=== PATIENT | female | born 1930 | race Hispanic/Latino ===

== ENCOUNTER 2019-11-14 19:29 | Inpatient (IN) | payer MEDICARE, OTHER ==
[2019-11-14] MEDS ORDERED: ONDANSETRON 4 MG ODT TAB ONE (19:39)
[2019-11-14] MEDS ORDERED: ONDANSETRON 4 MG/2 ML INJ IV ONE ×3 (19:45→22:42)
[2019-11-14] MEDS ORDERED: MORPHINE 4 MG/1 ML INJ IV ONE (19:58)
[2019-11-14 20:16] LABS: Basophils % (Auto) 0.3 % (0.0-1.8); Eosinophils % (Auto) 0.1 % (0.0-4.3); Hematocrit 28.5 % (30.3-42.9); Lymphocytes # (Auto) 0.9 K/mm3 (1.2-5.4); Lymphocytes % (Auto) 6.4 % (13.4-35.0); Mean Corpuscular HGB Conc 35 % (30-34); Mean Corpuscular Volume 102 fl (79-97); Monocytes # (Auto) 0.7 K/mm3 (0.0-0.8); Monocytes % (Auto) 4.7 % (0.0-7.3); Platelet Count 259 K/mm3 (140-440); Red Cell Distribution Width 13.6 % (13.2-15.2)
[2019-11-14 20:37] LABS: Alanine Aminotransferase 10 units/L (7-56); Albumin 4.3 g/dL (3.9-5); Blood Urea Nitrogen 21 mg/dL (7-17); Calcium 9.1 mg/dL (8.4-10.2); Hemolysis Index 12
[2019-11-14] MEDS ORDERED: HYDROmorphone 1 MG/1 ML INJ IV ONE ×2 (20:45→22:42)
[2019-11-14] MEDS ORDERED: HYDROmorphone 1 MG/1 ML INJ ONE (20:45)
[2019-11-14 20:48] LABS: BUN/Creatinine Ratio 35
--- NOTE | 2019-11-14 20:50 | Emergency Department Report ---
ED Abdominal Pain HPI - General Chief Complaint: Abdominal Pain Stated Complaint: GENERAL WEAKNESS PUI?: No Time Seen by Provider: 11/14/19 20:20 Source: patient, EMS Mode of arrival: Stretcher Limitations: No Limitations - History of Present Illness Initial Comments: cc: Abdominal pain HPI: This is an 89-year-old female with history of Sjogren's disease, hypertension, anemia, GI bleed, gastritis, esophagitis who presents with severe 10 out of 10 abdominal pain central crampy sudden onset at 4:30 PM this afternoon. No associate with eating. No fever. Positive nausea and vomiting. No sick contacts. Patient lives with her . Patient takes Plavix for unknown reason. On previous occasion patient was prescribed Protonix. Last hospitalization here occurred in 2012 for GI bleed severe anemia associated with esophagitis and gastritis. MD Complaint: abdominal pain -: Sudden, This afternoon Location: diffuse, epigastric Radiation: none Migration to: no migration Severity: severe Severity scale (0 -10): 10 Quality: cramping Consistency: constant Improves With: nothing Worsens With: nothing Associated Symptoms: nausea, vomiting. denies: diarrhea, dysuria - Related Data Home Medications Medication Instructions Recorded Confirmed Last Taken Acetaminophen [Tylenol Arthritis] 325 mg PO BID PRN 03/06/13 11/14/19 11/30/15 Calcium Carbonate/Vitamin D3 600 mg PO BID 03/06/13 11/14/19 12/01/15 [Calcium 600-Vit D3 400 Tablet] Lovastatin Tab [Mevacor] 10 mg PO QHS 03/06/13 11/14/19 12/03/15 Multivitamin [Multi-Vitamin Daily] 400 unit PO BID 03/06/13 11/14/19 12/02/15 atenoloL [Atenolol] 25 mg PO DAILY 09/28/13 11/14/19 12/04/15 Ursodiol (Nf) [Actigall (Nf)] 250 mg PO BID 04/25/14 11/14/19 12/02/15 B2/Vits A,C,E/Lut/Zeaxanth/Min 1 tab PO DAILY 11/14/19 11/14/19 Unknown [Icaps Tablet] Clopidogrel [Plavix] 75 mg PO DAILY 11/14/19 11/14/19 Unknown Colesevelam [Welchol] 625 mg PO DAILY 11/14/19 11/14/19 Unknown Mirabegron [Myrbetriq] 50 mg PO QDAY 11/14/19 11/14/19 Unknown hydroCHLOROthiazide 12.5 mg PO DAILY 11/14/19 11/14/19 Unknown [Hydrochlorothiazide] Allergies Allergy/AdvReac Type Severity Reaction Status Date / Time cephalexin monohydrate AdvReac Severe Diarrhea Verified 12/04/15 10:51 [From Keflex] aspirin AdvReac Intermediate Rash Verified 12/04/15 10:51 ED Review of Systems ROS: Stated complaint: GENERAL WEAKNESS Other details as noted in HPI Comment: All other systems reviewed and negative Constitutional: denies: fever, malaise Respiratory: denies: cough Cardiovascular: denies: chest pain Gastrointestinal: abdominal pain, nausea, vomiting. denies: diarrhea, constipation Skin: denies: rash, lesions Neurological: denies: headache, weakness ED Past Medical Hx - Past Medical History Previous Medical History?: Yes Hx Hypertension: Yes Hx Heart Attack/AMI: No Hx Congestive Heart Failure: No Hx Diabetes: No Hx GERD: Yes Hx Liver Disease: Yes (fatty liver) Hx Renal Disease: No Hx Arthritis: Yes Hx Seizures: No Hx Asthma: No Hx COPD: No Hx HIV: No Additional medical history: back problems, high cholesterol, Sjogren's antibody's - Surgical History Past Surgical History?: Yes Hx Appendectomy: Yes Additional Surgical History: partial hysterectomy, back surgery, bladder tach, patient unclear she's had her appendix out. Only if they took it out with her hysterectomy. Multiple kyphoplastys - Social History Smoking Status: Never Smoker - Medications Home Medications: Home Medications Medication Instructions Recorded Confirmed Last Taken Type Acetaminophen [Tylenol Arthritis] 325 mg PO BID PRN 03/06/13 11/14/19 11/30/15 History Calcium Carbonate/Vitamin D3 600 mg PO BID 03/06/13 11/14/19 12/01/15 History [Calcium 600-Vit D3 400 Tablet] Lovastatin Tab [Mevacor] 10 mg PO QHS 03/06/13 11/14/19 12/03/15 History Multivitamin [Multi-Vitamin Daily] 400 unit PO BID 03/06/13 11/14/19 12/02/15 History atenoloL [Atenolol] 25 mg PO DAILY 09/28/13 11/14/19 12/04/15 History Ursodiol (Nf) [Actigall (Nf)] 250 mg PO BID 04/25/14 11/14/19 12/02/15 History B2/Vits A,C,E/Lut/Zeaxanth/Min 1 tab PO DAILY 11/14/19 11/14/19 Unknown History [Icaps Tablet] Clopidogrel [Plavix] 75 mg PO DAILY 11/14/19 11/14/19 Unknown History Colesevelam [Welchol] 625 mg PO DAILY 11/14/19 11/14/19 Unknown History Mirabegron [Myrbetriq] 50 mg PO QDAY 11/14/19 11/14/19 Unknown History hydroCHLOROthiazide 12.5 mg PO DAILY 11/14/19 11/14/19 Unknown History [Hydrochlorothiazide] ED Physical Exam - General Limitations: No Limitations General appearance: alert, in no apparent distress, other (Appears in severe pain) - Head Head exam: Present: atraumatic, normocephalic - Eye Eye exam: Present: normal appearance - ENT ENT exam: Present: mucous membranes moist - Neck Neck exam: Present: normal inspection, full ROM - Respiratory Respiratory exam: Present: normal lung sounds bilaterally. Absent: respiratory distress, wheezes, rales, rhonchi, stridor - Cardiovascular Cardiovascular Exam: Present: regular rate, normal rhythm, normal heart sounds. Absent: systolic murmur, diastolic murmur, rubs, gallop - GI/Abdominal GI/Abdominal exam: Present: soft, normal bowel sounds. Absent: distended, tenderness, guarding, rebound - Extremities Exam Extremities exam: Present: normal inspection - Neurological Exam Neurological exam: Present: alert, oriented X3 - Psychiatric Psychiatric exam: Present: normal affect, normal mood - Skin Skin exam: Present: warm, dry, intact, normal color. Absent: rash ED Course Vital Signs 11/14/19 11/14/19 11/14/19 19:30 19:43 19:45 Temperature 98.6 F Pulse Rate 102 H 107 H Respiratory 28 H 28 H 27 H Rate Blood Pressure 160/92 Blood Pressure 159/102 [Left] O2 Sat by Pulse 97 96 95 Oximetry 11/14/19 11/14/19 11/14/19 20:16 20:46 21:14 Temperature Pulse Rate 105 H 107 H 112 H Respiratory 34 H 22 20 Rate Blood Pressure 155/99 160/97 Blood Pressure 168/86 [Left] O2 Sat by Pulse 94 98 99 Oximetry 11/14/19 22:06 Temperature Pulse Rate 125 H Respiratory 24 Rate Blood Pressure 160/92 Blood Pressure [Left] O2 Sat by Pulse 96 Oximetry ED Medical Decision Making - Lab Data Result diagrams: 11/14/19 19:59 11/14/19 19:59 - EKG Data -: EKG Interpreted by Me EKG shows normal: sinus rhythm, axis, intervals, QRS complexes Rate: tachycardia - EKG Data 11/14/19 20:50 EKG obtained 2024 EKG interpreted by me Sinus tachycardia rate 110 bpm normal axis normal intervals no ST elevation nonischemic T wave pattern - Radiology Data Radiology results: report reviewed CT abdomen pelvis: Large hiatal hernia, dilatation pancreatic duct, compression deformities with kyphoplasty, mild bladder distention - Medical Decision Making This is an 89-year-old female who presents with severe abdominal pain tachycardia nausea vomiting. Symptoms occurred 2 hours after eating eggroll. Differential diagnosis includes: Food poisoning, viral syndrome such as influenza COVID-19. Medication of bowel obstruction. No indication of acute inflammatory intra-abdominal process. Chest radiograph without evidence of pneumonia. Urinalysis without evidence of UTI. Due to persistent severe tachycardia Sirs, patient will require supportive care. Admitted to the hospital service for supportive care further treatment and evaluation Critical care attestation.: If time is entered above; I have spent that time in minutes in the direct care of this critically ill patient, excluding procedure time. ED Disposition Clinical Impression: SIRS (systemic inflammatory response syndrome), Acute abdominal complaint Disposition: OP ADMIT IP TO THIS HOSP Is pt being admited?: Yes Does the pt Need Aspirin: No Condition: Stable
[2019-11-14 21:07] LABS: Bilirubin,Urine NEG (Negative); Blood,Urine NEG (Negative); Color,Urine Yellow (Yellow); Protein,Urine <15 mg/dL mg/dL (Negative); Urobilinogen,Urine < 2.0 mg/dL (<2.0)
[2019-11-14] MEDS ORDERED: SODIUM CHLORIDE 0.9% 500 ML 500 ML IV ONE ×2 (22:08→22:41)
--- NOTE | 2019-11-14 22:24 | Cat Scan Report ---
CT ABDOMEN AND PELVIS WITH CONTRAST INDICATION / CLINICAL INFORMATION: abdominal pain. TECHNIQUE: Axial CT images were obtained through the abdomen and pelvis after IV contrast. All CT scans at this location are performed using CT dose reduction for ALARA by means of automated exposure control. COMPARISON: CT abdomen pelvis 10/04/2014 FINDINGS: LOWER CHEST: Large hiatal hernia. Multivessel coronary artery atherosclerotic calcination dictation. Aortic valve calcification. Mild bibasilar atelectasis. HEPATOBILIARY: No focal hepatic lesion. No gallstones. Mild intrahepatic biliary ductal dilatation. C ommon bile duct measures up to 6 mm. PANCREAS: There is dilatation of the pancreatic duct in the head/uncinate process up to 7 mm with tap ering to 3 mm at the body and tail. No definite intrinsic or extrinsic obstructing lesion. Morphology appears represent pancreas divisum. Findings are progressed when compared to 10/04/2014. SPLEEN: No significant abnormality. ADRENALS: No significant abnormality. GENITOURINARY: Mild bilateral pelvocaliectasis and ureteral ectasia as well as significant bladder di stention. No nephrolithiasis or definite obstructing lesion. 1.3 cm hypodensity likely represents a l eft simple renal cyst GASTROINTESTINAL/MESENTERY: Some swirling of vessels is noted in the midabdomen without evidence of o bstruction or vascular compromise. No bowel inflammation is noted. There is granulomatous calcificati on and mesenteric lymph nodes. Appendix is not definitively visualized and no pericecal inflammation is seen. No free air or fluid. RETROPERITONEUM: No significant adenopathy. REPRODUCTIVE ORGANS: No significant abnormality. VASCULAR: Severe atherosclerotic calcification without acute abnormality. SKELETAL SYSTEM: Postoperative change of gamma nail in the right hip and multiple level of vertebral/ kyphoplasty. Compression deformities of L3 and L4 with moderate height loss are present with interval worsening at L4 when compared to 2014. Diffuse degenerative change. ADDITIONAL FINDINGS: None. IMPRESSION: 1. Mild bilateral pelvocaliectasis and ureteral ectasia possibly secondary to significant bladder dis tention. Consider and out catheterization. No nephroureterolithiasis. 2. Large hiatal hernia. 3. Dilatation of the pancreatic duct in the head/uncinate process without evidence of obstructing les ion. Findings are new when compared to 2014 and further evaluation with ERCP/MRCP should be considere d. 4. Lumbar spine vertebral body compression deformities with postoperative change of vertebroplasty/ky phoplasty. Interval worsening at L4 with moderate height loss is age indeterminate. Recommend clinica l correlation. Signer Name: Akin Tate MD Signed: 11/14/2019 10:20 PM Workstation Name: [id number]
[2019-11-14] MEDS ORDERED: SODIUM CHLORIDE 0.9% 1000 ML 1,000 ML ONE (23:19)
[2019-11-14] MEDS ORDERED: HEPARIN 5,000 UNIT/1 ML VIAL SUB-Q SCH (23:45)
[2019-11-14] MEDS ORDERED: SODIUM CHLORIDE 0.9% 1000 ML 1,000 ML IV SCH (23:45)
[2019-11-15] MEDS ORDERED: ACETAMINOPHEN 325 MG TAB PO PRN (00:03)
--- NOTE | 2019-11-15 00:20 | XRay Report ---
CHEST 1 VIEW INDICATION: tachycardia COMPARISON: 03/16/2013 FINDINGS: SUPPORT DEVICES: None. HEART / MEDIASTINUM: No significant abnormality. LUNGS / PLEURA: Bronchovascular markings are prominent. No significant pulmonary or pleural abnormali ty. No pneumothorax. ADDITIONAL FINDINGS: IMPRESSION: 1. Prominent bronchovascular markings, questionable pulmonary edema Signer Name: Jake Carcamo MD Signed: 11/15/2019 12:16 AM Workstation Name: [id number]
[2019-11-15] MEDS: ONDANSETRON 4 MG/2 ML INJ IV PRN ×3 (03:12→17:15)
--- NOTE | 2019-11-15 05:42 | History and Physical Report ---
History of Present Illness Date of examination: 11/14/19 Date of admission: 11/14/19 22:45 Chief complaint: Abdominal Pain History of present illness: 89 year old female presenting with diffuse abdominal pain associated with nausea and vomiting and constipation but no diarrhea. There is no history of fever, shortness of breath, chest pain or bodyache. Past History Past Medical History: arthritis, GERD, hypertension, hyperlipidemia Past Surgical History: appendectomy, hysterectomy, Other (BACK SURGERY, BLADDER TACH SURGERY, KYPHOPLASTY) Family history: no significant family history Medications and Allergies Allergies Allergy/AdvReac Type Severity Reaction Status Date / Time cephalexin monohydrate AdvReac Severe Diarrhea Verified 12/04/15 10:51 [From Keflex] aspirin AdvReac Intermediate Rash Verified 12/04/15 10:51 Home Medications Medication Instructions Recorded Confirmed Last Taken Type Acetaminophen [Tylenol Arthritis] 325 mg PO BID PRN 03/06/13 11/14/19 11/30/15 H istory Calcium Carbonate/Vitamin D3 600 mg PO BID 03/06/13 11/14/19 12/01/15 History [Calcium 600-Vit D3 400 Tablet] Lovastatin Tab [Mevacor] 10 mg PO QHS 03/06/13 11/14/19 12/03/15 History Multivitamin [Multi-Vitamin Daily] 400 unit PO BID 03/06/13 11/14/19 12/02/15 History atenoloL [Atenolol] 25 mg PO DAILY 09/28/13 11/14/19 12/04/15 History Ursodiol (Nf) [Actigall (Nf)] 250 mg PO BID 04/25/14 11/14/19 12/02/15 History B2/Vits A,C,E/Lut/Zeaxanth/Min 1 tab PO DAILY 11/14/19 11/14/19 Unknown History [Icaps Tablet] Clopidogrel [Plavix] 75 mg PO DAILY 11/14/19 11/14/19 Unknown History Colesevelam [Welchol] 625 mg PO DAILY 11/14/19 11/14/19 Unknown History Mirabegron [Myrbetriq] 50 mg PO QDAY 11/14/19 11/14/19 Unknown History hydroCHLOROthiazide 12.5 mg PO DAILY 11/14/19 11/14/19 Unknown History [Hydrochlorothiazide] Active Meds: Active Medications Acetaminophen (Tylenol) 650 mg PO Q4H PRN PRN Reason: Fever >101 Atenolol (Tenormin) 25 mg PO DAILY [facility] Bisacodyl (Dulcolax) 10 mg AR QDAY PRN PRN Reason: Constipation Calcium/Vitamin D ([place] D 500 Mg-200 Unit) 1 each PO BID [facility] Clopidogrel Bisulfate (Plavix) 75 mg PO DAILY [facility] Colesevelam HCl (Welchol) 625 mg PO DAILY [facility] Hydrochlorothiazide (Hctz) 12.5 mg PO DAILY [facility] Sodium Chloride (Nacl 0.9% 1000 Ml) 1,000 mls @ 75 mls/hr IV DIRECT CLAUDIA Last Admin: 11/15/19 03:13 Dose: 75 mls/hr Documented by: Miscellaneous Medication (B2/Vits A,C,E/Lut/Zeaxanth/Min [Icaps Tablet]) 1 tab PO DAILY [facility] Miscellaneous Medication (Mirabegron [Myrbetriq]) 50 mg PO QDAY [facility] Morphine Sulfate (Morphine) 2 mg IV Q4H PRN PRN Reason: Pain, Moderate (4-6) Multivitamins (Theragran Tab) 1 each PO BID [facility] Ondansetron HCl (Zofran) 4 mg IV Q8H PRN PRN Reason: Nausea And Vomiting Last Admin: 11/15/19 03:12 Dose: 4 mg Documented by: Pravastatin Sodium (Pravachol) 10 mg PO QHS [facility] Ursodiol (Ursodiol) 250 mg PO BID [facility] Review of Systems Constitutional: weakness, no weight loss, no weight gain, no fever, no chills, no sweats, no night sweats, no fatigue, no malaise, no lethargy Eyes: bilateral: other (NO BILATERAL EYE SYMPTOM) Ears, nose, mouth and throat: no ear pain, no ear discharge, no tinnitis, no decreased hearing, no nose pain, no nasal congestion, no nasal discharge, no dental pain, no mouth pain Breasts: deferred Cardiovascular: no chest pain, no orthopnea, no palpitations, no rapid/irregular heart beat, no syncope Respiratory: no cough, no hemoptysis, no shortness of breath, no dyspnea on exertion, no congestion Gastrointestinal: abdominal pain, nausea, vomiting, constipation, no diarrhea, no change in bowel habits, no hematemesis, no coffee ground emesis, no melena, no hematochezia, no loss of appetite, no early satiety, no heartburn, no indige stion, no belching, no excessive gas, no jaundice, no dyspepsia/bloating, no early satiety Genitourinary Female: no Menstruation: postmenopausal Rectal: no pain, no incontinence, no itching, no hemorrhoids, no flatulence Musculoskeletal: no neck stiffness, no neck pain, no muscle cramps, no myalgias Integumentary: no rash, no pruritis, no redness, no sores, no wounds, no jaundice, no growths, no bullae, no lesions, no darkening of skin, no depigmentation, no acne, no change in hair/nails, no striae, no hirsutism Neurological: weakness, no head injury, no paralysis, no parathesias, no numbness, no tingling, no seizures, no syncope, no tremors, no ataxia, no vertigo, no headaches, no migraines, no convulsions, no change in speech, no change in mentation, no confusion, no memory loss, no motor disturbance Psychiatric: no anxiety, no memory loss, no change in sleep habits, no sleep disturbances, no insomnia, no hypersomnia Endocrine: no cold intolerance, no heat intolerance, no polyphagia, no excessive thirst, no polydipsia, no polyuria, no nocturia, no proptosis, no deepening of the voice, no thyroid mass, no palpatations, no high blood sugars Hematologic/Lymphatic: no easy bruising, no easy bleeding, no lymphadenopathy, no lymphedema Exam - Constitutional Vitals: Temp Pulse Resp BP Pulse Ox 98.0 F 117 H 16 158/87 94 11/15/19 03:29 11/15/19 03:28 11/15/19 03:29 11/15/19 03:28 11/15/19 03:28 General appearance: Present: mild distress - EENT Eyes: Present: PERRL, EOM intact ENT: hearing intact - Neck Neck: Present: supple, normal ROM - Respiratory Respiratory effort: normal - Cardiovascular Rhythm: regular Heart Sounds: Present: S1 & S2. Absent: gallop, systolic murmur, diastolic murmur - Extremities Extremities: no ischemia, No edema Peripheral Pulses: within normal limits - Abdominal General gastrointestinal: Present: soft, non-tender, non-distended. Absent: tender, distended, rigid Female genitourinary: Present: deferred - Rectal Rectal Exam: deferred - Integumentary Integumentary: Present: clear, warm, dry - Musculoskeletal Musculoskeletal: strength equal bilaterally - Psychiatric Psychiatric: appropriate mood/affect - Neurologic Neurologic: CNII-XII intact HEART Score - HEART Score Risk factors: 1-2 risk factors Troponin: < normal limit - Critical Actions Critical Actions: 0-3 pts:0.9-1.7%risk of adverse cardiac event.Candidate for discharge Results - Labs CBC & Chem 7: 11/14/19 19:59 11/14/19 19:59 Labs: Laboratory Last Values WBC 14.6 K/mm3 (4.5-11.0) H 11/14/19 19:59 RBC 2.80 M/mm3 (3.65-5.03) L 11/14/19 19:59 Hgb 10.0 gm/dl (10.1-14.3) L 11/14/19 19:59 Hct 28.5 % (30.3-42.9) L 11/14/19 19:59 MCV 102 fl (79-97) H 11/14/19 19:59 MCH 36 pg (28-32) H 11/14/19 19:59 MCHC 35 % (30-34) H 11/14/19 19:59 RDW 13.6 % (13.2-15.2) 11/14/19 19:59 Plt Count 259 K/mm3 (140-440) 11/14/19 19:59 Lymph % (Auto) 6.4 % (13.4-35.0) L 11/14/19 19:59 [place] % (Auto) 4.7 % (0.0-7.3) 11/14/19 19:59 Eos % (Auto) 0.1 % (0.0-4.3) 11/14/19 19:59 Baso % (Auto) 0.3 % (0.0-1.8) 11/14/19 19:59 Lymph # 0.9 K/mm3 (1.2-5.4) L 11/14/19 19:59 [place] # 0.7 K/mm3 (0.0-0.8) 11/14/19 19:59 Eos # 0.0 K/mm3 (0.0-0.4) 11/14/19 19:59 Baso # 0.0 K/mm3 (0.0-0.1) 11/14/19 19:59 Seg Neutrophils % 88.5 % (40.0-70.0) H 11/14/19 19:59 Seg Neutrophils # 12.9 K/mm3 (1.8-7.7) H 11/14/19 19:59 Sodium 135 mmol/L (137-145) L 11/14/19 19:59 Potassium 4.0 mmol/L (3.6-5.0) 11/14/19 19:59 Chloride 98.5 mmol/L (98-107) 11/14/19 19:59 Carbon Dioxide 20 mmol/L (22-30) L 11/14/19 19:59 Anion Gap 21 mmol/L 11/14/19 19:59 BUN 21 mg/dL (7-17) H 11/14/19 19:59 Creatinine 0.6 mg/dL (0.6-1.2) 11/14/19 19:59 Estimated GFR > 60 ml/min 11/14/19 19:59 BUN/Creatinine Ratio 35 % 11/14/19 19:59 Glucose 190 mg/dL (65-100) H 11/14/19 19:59 Lactic Acid 1.70 mmol/L (0.7-2.0) 11/15/19 02:26 Calcium 9.1 mg/dL (8.4-10.2) 11/14/19 19:59 Total Bilirubin 0.20 mg/dL (0.1-1.2) 11/14/19 19:59 AST 20 units/L (5-40) 11/14/19 19:59 ALT 10 units/L (7-56) 11/14/19 19:59 Alkaline Phosphatase 46 units/L (35-129) 11/14/19 19:59 Total Protein 7.8 g/dL (6.3-8.2) 11/14/19 19:59 Albumin 4.3 g/dL (3.9-5) 11/14/19 19:59 Albumin/Globulin Ratio 1.2 % 11/14/19 19:59 Lipase 56 units/L (13-60) 11/14/19 19:59 Urine Color Yellow (Yellow) 11/14/19 20:59 Urine Turbidity Clear (Clear) 11/14/19 20:59 Urine pH 7.0 (5.0-7.0) 11/14/19 20:59 Ur Specific [place] 1.010 (1.003-1.030) 11/14/19 20:59 Urine Protein <15 mg/dl mg/dL (Negative) 11/14/19 20:59 Urine Glucose (UA) Neg mg/dL (Negative) 11/14/19 20:59 Urine Ketones Tr mg/dL (Negative) 11/14/19 20:59 Urine Blood Neg (Negative) 11/14/19 20:59 Urine Nitrite Neg (Negative) 11/14/19 20:59 Urine Bilirubin Neg (Negative) 11/14/19 20:59 Urine Urobilinogen < 2.0 mg/dL (<2.0) 11/14/19 20:59 Ur Leukocyte Esterase Mod (Negative) 11/14/19 20:59 Urine WBC (Auto) 6.0 /HPF (0.0-6.0) 11/14/19 20:59 Urine RBC (Auto) 2.0 /HPF (0.0-6.0) 11/14/19 20:59 Microbiology: Microbiology 11/14/19 23:08 Peripheral/Venous Blood Culture - Preliminary Culture in Progress 11/14/19 22:54 Peripheral/Venous Blood Culture - Preliminary Culture in Progress White/IV: IV Catheter Type [Left INT / Saline Lock Antecubital] Assessment and Plan - Patient Problems (1) Tachycardia Current Visit: Yes Status: Acute Plan to address problem: 1. I.V NORMAL SALINE FLUID 2. HOME MEDICATION LIKE PROPRANOLOL (2) Acute abdominal complaint Current Visit: Yes Status: Acute Plan to address problem: 1. I.V MORPHIN FOR PAIN 2. I.V ZOFRAN FOR NAUSEA 3. DULCOLAX SUPPOSITORY FOR CONSTIPATION 4. I.V NORMAL SALINE FLUID
[2019-11-15] MEDS ORDERED: [UNRECOGNIZED DRUG - OTHER] PO SCH (10:00)
[2019-11-15] MEDS ORDERED: NON-FORMULARY EACH (Mirabegron [Myrbetriq] 50 MG) PO SCH (10:00)
[2019-11-15] MEDS: hydroCHLOROthiazide 12.5 MG CAP PO SCH (11:21)
[2019-11-15] MEDS: atenoloL 25 MG TAB PO SCH (11:21)
[2019-11-15] MEDS: MULTIVITAMINS ,THERAPEUTIC TAB PO SCH ×2 (11:21→21:54)
[2019-11-15] MEDS: CLOPIDOGREL 75 MG TAB PO SCH (11:21)
[2019-11-15] MEDS: CALCIUM CARBONATE/VITAMIN D3 500 MG-200 UNIT TAB PO SCH ×2 (11:21→21:54)
[2019-11-15] MEDS: COLESEVELAM 625 MG TAB PO SCH (11:42)
[2019-11-15] MEDS: URSODIOL 250 MG TAB PO SCH ×2 (11:43→21:55)
[2019-11-15] MEDS: PANTOPRAZOLE 40 MG INJ IV SCH (13:40)
[2019-11-15] MEDS: D5W/0.9% NACL 1,000 ML IV SCH (13:44)
--- NOTE | 2019-11-15 14:30 | Progress Note ---
Assessment and Plan Acute epigastric abdominal pain -CT abdomen pelvis suggesting pancreatic duct dilatation without any obvious obstruction -GI consulted, plan for MRCP today -Patient on clear liquid diet, continue IV fluid Intractable nausea and vomiting -Continue IV fluid, IV antiemetics, continue PPI History of GI bleed, monitor H&H Hypertension, continue to monitor vitals -Resume home meds Hyponatremia, likely due to dehydration, continue IV fluid Lactic acidosis, likely from dehydration -Improved with IV fluid SIRS, patient presented with leukocytosis, tachycardia, lactic acidosis -Continue empiric antibiotics for now, follow cultures h/o L5 compression fracture, continue supportive care DVT prophylaxis, heparin Brief History: This is a 89-year-old white female with a history of hypertension, history of GI bleed in the past, rheumatoid arthritis presented to the hospital with intractable nausea vomiting and abdominal pain. CT abdomen pelvis in the ER showed pancreatic dilation without any obvious obstruction. GI has consulted, plan for MRCP -ordered. Ct abdoemn/pelvis: 1. Mild bilateral pelvocaliectasis and ureteral ectasia possibly secondary to significant bladder distention. Consider and out catheterization. No nephroureterolithiasis. 2. Large hiatal hernia. 3. Dilatation of the pancreatic duct in the head/uncinate process without evidence of obstructing lesion. Findings are new when compared to 2015 and further evaluation with ERCP/MRCP should be considered. 4. Lumbar spine vertebral body compression deformities with postoperative change of vertebroplasty/kyphoplasty. Interval worsening at L4 with moderate height loss is age indeterminate. Recommend clinical correlation. Subjective Date of service: 11/15/19 Interval history: Patient seen and examined. Medical records and medication list reviewed. No acute event overnight noted by the RN. Patient denies any chest pain or difficulty breathing. Continue to complains of epigastric pain along with nausea and vomiting Discussed plan of care at bedside with patient. Objective - Exam Narrative Exam: GENERAL: This is a frail elderly white female lying on bed appeared to be in no discomfort. HEENT: Normocephalic. Atraumatic. No conjunctival congestion or icterus. Patient has moist mucous membranes. NECK: Supple. Trachea midline. CHEST/LUNGS: Clear to auscultated bilaterally, breathing nonlabored. No wheezes crackles or rhonchi. HEART/CARDIOVASCULAR: Regular in rate and rhythm. S1 and S2 positive. ABDOMEN: Abdomen is soft, + epigastric tender. Patient has normal bowel sounds. SKIN: There is no rash. Warm and dry. NEURO: No focal motor deficit. Follows command. MUSCULOSKELETAL: No joint effusion or tenderness. EXTRIMITY: No edema, no cyanosis or clubbing. PSYCH: Cooperative. - Constitutional Vitals: Vital Signs - 12hr 11/15/19 11/15/19 11/15/19 03:28 03:29 07:27 Temperature 98.0 F 98.0 F 97.5 F L Pulse Rate 117 H 56 L Respiratory 16 16 18 Rate Blood Pressure 158/87 139/74 O2 Sat by Pulse 94 94 Oximetry 11/15/19 11/15/19 08:07 11:21 Temperature Pulse Rate 106 H 108 H Respiratory Rate Blood Pressure 156/76 O2 Sat by Pulse Oximetry - Labs CBC & Chem 7: 11/14/19 19:59 11/14/19 19:59 Labs: Abnormal lab results 11/14/19 11/14/19 11/14/19 Range/Units 19:59 19:59 23:08 WBC 14.6 H (4.5-11.0) K/mm3 RBC 2.80 L (3.65-5.03) M/mm3 Hgb 10.0 L (10.1-14.3) gm/dl Hct 28.5 L (30.3-42.9) % MCV 102 H (79-97) fl MCH 36 H (28-32) pg MCHC 35 H (30-34) % Lymph % (Auto) 6.4 L (13.4-35.0) % Lymph # 0.9 L (1.2-5.4) K/mm3 Seg Neutrophils % 88.5 H (40.0-70.0) % Seg Neutrophils # 12.9 H (1.8-7.7) K/mm3 Sodium 135 L (137-145) mmol/L Carbon Dioxide 20 L (22-30) mmol/L BUN 21 H (7-17) mg/dL Glucose 190 H (65-100) mg/dL Lactic Acid 2.90 H* (0.7-2.0) mmol/L HEART Score - HEART Score Risk factors: 1-2 risk factors Troponin: < normal limit - Critical Actions Critical Actions: 0-3 pts:0.9-1.7%risk of adverse cardiac event.Candidate for discharge
[2019-11-15] MEDS: MULTIVITAMINS,THER W-MINERALS TAB PO SCH (16:06)
--- NOTE | 2019-11-15 16:08 | Magnetic Resonance Report ---
MRCP INDICATION: Nausea, vomiting TECHNIQUE: Axial and coronal imaging is performed. Radial MRCP images were obtained. No contrast is a dministered. COMPARISON: CT scan dated 10/14/2019 FINDINGS: The distal common bile duct level the pancreatic head is dilated and measures approximately 7 mm. Pancreatic duct measures approximately 3 mm. No filling defects are seen within the pancreatic duct common bile duct. No mass lesions are seen. IMPRESSION: There is mild dilatation of the common bile duct at the level of the pancreatic head no filling defec ts are seen within the common duct or within the pancreatic duct. No mass lesions are seen. Signer Name: Vladislav Gregorio MD Signed: 11/15/2019 4:03 PM Workstation Name: [id number]
[2019-11-15] MEDS: METOCLOPRAMIDE 10 MG TAB PO PRN (17:08)
--- NOTE | 2019-11-15 19:59 | Consultation ---
REFERRING PHYSICIAN: Riddhi Mercer MD INDICATION: Abdominal pain. HISTORY OF PRESENT ILLNESS: The patient is an 89-year-old white female, who presents for abdominal pain. The patient reports usual state of health until the day prior to admission when she started having epigastric pain. The patient reports symptoms were worse with eating and associated with some nausea, vomiting. She denies any weight loss. She denies any lower GI symptoms including diarrhea, constipation or rectal bleeding. The patient subsequently came to Emergency Room, was evaluated, admitted and GI consulted. PAST MEDICAL HISTORY: 1. GERD. 2. Hypertension. 3. High cholesterol. PAST SURGICAL HISTORY: Appendectomy, hysterectomy, back surgery. ALLERGIES: KEFLEX AND ASPIRIN. MEDICATIONS: Reviewed and updated in chart. SOCIAL HISTORY: Denies alcohol, tobacco or drug abuse. FAMILY HISTORY: Negative for colon cancer, IBD, or liver disease. REVIEW OF SYSTEMS: GENERAL: Reports some weakness. HEENT: No visual complaints or tinnitus. PULMONARY: No shortness of breath. No cough. No chest pain. GASTROINTESTINAL: Reports abdominal pain. All points of 13-point review of systems otherwise negative. PHYSICAL EXAMINATION: VITAL SIGNS: Temperature of 97.5, pulse 60, respirations 18, blood pressure 130/74. GENERAL: Fairly nourished female, in no acute distress. HEENT: Pupils equal, round and reactive. PULMONARY: Clear to auscultation bilaterally. CARDIOVASCULAR: Regular rhythm. Normal S1, S2. ABDOMEN: Positive bowel sounds, soft. SKIN: No obvious rashes. LABORATORY DATA: Pertinent for white count of 14.6, hemoglobin and hematocrit of 10 and 28.5, platelet count of 259. Chem-7 within normal limits. LFTs within normal limits. CT scan of abdomen and pelvis with contrast performed on 11/14/2019 showed a dilated pancreatic duct, but otherwise no other significant GI pathology. ASSESSMENT: An 89-year-old female with epigastric pain, now presents with abdominal pain, unclear etiology. The patient was noted to have pancreatic duct dilation on CT scan, but denies any weight loss or other associated symptoms, concern for GI-related pathology. PLAN: 1. We will review CT scan. 2. MRI, MRCP. 3. If negative MRI, MRCP, would then consider EGD. 4. Followup and further recommendation based on progress and results of the above. JOB# [id number] BENNY/LYNN MAURICE
[2019-11-15 20:21] LABS: Blood Urea Nitrogen 14 mg/dL (7-17); Calcium 9.6 mg/dL (8.4-10.2); Hemolysis Index 65
[2019-11-15 20:26] LABS: BUN/Creatinine Ratio 20
[2019-11-15] MEDS: PRAVASTATIN 20 MG TAB PO SCH (21:54)
[2019-11-16] MEDS: D5W/0.9% NACL 1,000 ML IV SCH ×2 (05:52→21:32)
[2019-11-16] MEDS: MORPHINE 2 MG/1 ML INJ IV PRN ×2 (05:52→21:30)
[2019-11-16] MEDS ORDERED: SODIUM CHLORIDE 0.9% 1000 ML 1,000 ML IV SCH (10:00)
--- NOTE | 2019-11-16 10:18 | Progress Note ---
Assessment and Plan Assessment and plan: --Patient is scheduled for EGD today; Continue n.p.o. status IV fluids IV Protonix Supportive care Acute epigastric abdominal pain -CT abdomen pelvis suggesting pancreatic duct dilatation without any obvious obstruction s/p MRCP 11/15/2019 MRCP; mild dilation of the common bile duct at the level of pancreatic head no filling defects are seen within the common duct or within the pancreatic duct no mass or lesions noted -Patient on clear liquid diet, continue IV fluid Intractable nausea and vomiting -Continue IV fluid, IV antiemetics, continue PPI History of GI bleed, monitor H&H Hypertension, continue to monitor vitals -Resume home meds Hyponatremia, likely due to dehydration, continue IV fluid Lactic acidosis, likely from dehydration -Improved with IV fluid SIRS, patient presented with leukocytosis, tachycardia, lactic acidosis -Continue empiric antibiotics for now, follow cultures h/o L5 compression fracture, continue supportive care DVT prophylaxis, heparin Follow EGD, follow GI recommendations Discharge when stable and cleared by GI Plan of care reviewed with the patient and her nurse History Interval history: I have seen and examined the patient at the bedside this morning Patient's chart and current medications reviewed Patient feels slightly better, asked for some water Patient is scheduled for EGD this afternoon Vital signs noted, patient is not in acute distress Hospitalist Physical - Constitutional Vitals: Temp Pulse Resp BP Pulse Ox 97.4 F L 60 17 138/73 98 11/16/19 07:43 11/16/19 07:43 11/16/19 07:43 11/16/19 07:43 11/16/19 07:43 General appearance: Present: no acute distress, well-nourished - EENT Eyes: Present: PERRL, EOM intact - Neck Neck: Present: supple, normal ROM - Respiratory Respiratory effort: normal Respiratory: bilateral: diminished, negative: rales, rhonchi, wheezing - Cardiovascular Rhythm: regular Heart Sounds: Present: S1 & S2 - Extremities Extremities: no ischemia, No edema - Abdominal General gastrointestinal: soft, non-tender, non-distended, normal bowel sounds - Integumentary Integumentary: Present: clear, warm - Psychiatric Psychiatric: appropriate mood/affect, cooperative - Neurologic Neurologic: moves all extremities HEART Score - HEART Score Risk factors: 1-2 risk factors Troponin: < normal limit - Critical Actions Critical Actions: 0-3 pts:0.9-1.7%risk of adverse cardiac event.Candidate for discharge Results - Labs CBC & Chem 7: 11/14/19 19:59 11/15/19 19:18 Labs: Laboratory Last Values WBC 14.6 K/mm3 (4.5-11.0) H 11/14/19 19:59 RBC 2.80 M/mm3 (3.65-5.03) L 11/14/19 19:59 Hgb 10.0 gm/dl (10.1-14.3) L 11/14/19 19:59 Hct 28.5 % (30.3-42.9) L 11/14/19 19:59 MCV 102 fl (79-97) H 11/14/19 19:59 MCH 36 pg (28-32) H 11/14/19 19:59 MCHC 35 % (30-34) H 11/14/19 19:59 RDW 13.6 % (13.2-15.2) 11/14/19 19:59 Plt Count 259 K/mm3 (140-440) 11/14/19 19:59 Lymph % (Auto) 6.4 % (13.4-35.0) L 11/14/19 19:59 [place] % (Auto) 4.7 % (0.0-7.3) 11/14/19 19:59 Eos % (Auto) 0.1 % (0.0-4.3) 11/14/19 19:59 Baso % (Auto) 0.3 % (0.0-1.8) 11/14/19 19:59 Lymph # 0.9 K/mm3 (1.2-5.4) L 11/14/19 19:59 [place] # 0.7 K/mm3 (0.0-0.8) 11/14/19 19:59 Eos # 0.0 K/mm3 (0.0-0.4) 11/14/19 19:59 Baso # 0.0 K/mm3 (0.0-0.1) 11/14/19 19:59 Seg Neutrophils % 88.5 % (40.0-70.0) H 11/14/19 19:59 Seg Neutrophils # 12.9 K/mm3 (1.8-7.7) H 11/14/19 19:59 Sodium 132 mmol/L (137-145) L 11/15/19 19:18 Potassium 4.4 mmol/L (3.6-5.0) 11/15/19 19:18 Chloride 92.1 mmol/L (98-107) L 11/15/19 19:18 Carbon Dioxide 23 mmol/L (22-30) 11/15/19 19:18 Anion Gap 21 mmol/L 11/15/19 19:18 BUN 14 mg/dL (7-17) 11/15/19 19:18 Creatinine 0.7 mg/dL (0.6-1.2) 11/15/19 19:18 Estimated GFR > 60 ml/min 11/15/19 19:18 BUN/Creatinine Ratio 20 % 11/15/19 19:18 Glucose 119 mg/dL (65-100) H 11/15/19 19:18 Lactic Acid 1.70 mmol/L (0.7-2.0) 11/15/19 02:26 Calcium 9.6 mg/dL (8.4-10.2) 11/15/19 19:18 Total Bilirubin 0.20 mg/dL (0.1-1.2) 11/14/19 19:59 AST 20 units/L (5-40) 11/14/19 19:59 ALT 10 units/L (7-56) 11/14/19 19:59 Alkaline Phosphatase 46 units/L (35-129) 11/14/19 19:59 Total Protein 7.8 g/dL (6.3-8.2) 11/14/19 19:59 Albumin 4.3 g/dL (3.9-5) 11/14/19 19:59 Albumin/Globulin Ratio 1.2 % 11/14/19 19:59 Lipase 56 units/L (13-60) 11/14/19 19:59 Urine Color Yellow (Yellow) 11/14/19 20:59 Urine Turbidity Clear (Clear) 11/14/19 20:59 Urine pH 7.0 (5.0-7.0) 11/14/19 20:59 Ur Specific [place] 1.010 (1.003-1.030) 11/14/19 20:59 Urine Protein <15 mg/dl mg/dL (Negative) 11/14/19 20:59 Urine Glucose (UA) Neg mg/dL (Negative) 11/14/19 20:59 Urine Ketones Tr mg/dL (Negative) 11/14/19 20:59 Urine Blood Neg (Negative) 11/14/19 20:59 Urine Nitrite Neg (Negative) 11/14/19 20:59 Urine Bilirubin Neg (Negative) 11/14/19 20:59 Urine Urobilinogen < 2.0 mg/dL (<2.0) 11/14/19 20:59 Ur Leukocyte Esterase Mod (Negative) 11/14/19 20:59 Urine WBC (Auto) 6.0 /HPF (0.0-6.0) 11/14/19 20:59 Urine RBC (Auto) 2.0 /HPF (0.0-6.0) 11/14/19 20:59 Microbiology: Microbiology 11/14/19 23:08 Peripheral/Venous Blood Culture - Preliminary NO GROWTH AFTER 24 HOURS 11/14/19 22:54 Peripheral/Venous Blood Culture - Preliminary NO GROWTH AFTER 24 HOURS White/IV: Voiding Method External Female Catheter IV Catheter Type [Right Upper Mid-line arm] IV Catheter Type [Left INT / Saline Lock Antecubital] Active Medications - Current Medications Current Medications: Generic Name Dose Route Start Last Admin Trade Name Freq PRN Reason Stop Dose Admin Acetaminophen 650 mg 11/15/19 00:03 Tylenol PO Q4H PRN Fever >101 Atenolol 25 mg 11/15/19 10:00 11/15/19 11:21 Tenormin PO 25 mg DAILY CLAUDIA Administration Bisacodyl 10 mg 11/15/19 00:00 Dulcolax [place] QDAY PRN Constipation Calcium/Vitamin D 1 each 11/15/19 10:00 11/15/19 21:54 Oysco D 500 Mg-200 Unit PO 1 each BID CLAUDIA Administration Clopidogrel Bisulfate 75 mg 11/15/19 10:00 11/15/19 11:21 Plavix PO 75 mg DAILY CLAUDIA Administration Colesevelam HCl 625 mg 11/15/19 10:00 11/15/19 11:42 Welchol PO 625 mg DAILY CLAUDIA Administration Hydrochlorothiazide 12.5 mg 11/15/19 10:00 11/15/19 11:21 Hctz PO 12.5 mg DAILY CLAUDIA Administration Levofloxacin/Dextrose 750 mg in 150 mls @ 100 mls/hr 11/15/19 16:00 11/15/19 16:06 Levaquin 750mg/150ml IV 100 mls/hr Q48HR CLAUDIA Administration Protocol Sodium Chloride 1,000 mls @ 50 mls/hr 11/16/19 10:00 Nacl 0.9% 1000 Ml IV DIRECT CLAUDIA Dextrose/Sodium Chloride 1,000 mls @ 75 mls/hr 11/16/19 10:00 D5ns IV DIRECT CLAUDIA Metoclopramide HCl 5 mg 11/15/19 12:00 Reglan PO Q6HR PRN Nausea And Vomiting Miscellaneous Medication 50 mg 11/15/19 10:00 Mirabegron [Myrbetriq] PO QDAY CLAUDIA Morphine Sulfate 2 mg 11/15/19 00:03 11/16/19 05:52 Morphine IV 2 mg Q4H PRN Administration Pain, Moderate (4-6) Multivitamins 1 each 11/15/19 10:00 11/15/19 21:54 Theragran Tab PO 1 each BID CLAUDIA Administration Multivitamins/Minerals 1 each 11/15/19 15:00 11/15/19 16:06 Theragran-M Tab PO 1 each QDAY CLAUDIA Administration Ondansetron HCl 4 mg 11/15/19 00:01 11/15/19 17:15 Zofran IV 4 mg Q8H PRN Administration Nausea And Vomiting Pantoprazole Sodium 40 mg 11/15/19 12:00 11/15/19 13:40 Protonix IV 40 mg QDAY CLAUDIA Administration Pravastatin Sodium 10 mg 11/15/19 22:00 11/15/19 21:54 Pravachol PO 10 mg QHS CLAUDIA Administration Ursodiol 250 mg 11/15/19 10:00 11/15/19 21:55 Ursodiol PO 250 mg BID CLAUDIA Administration Nutrition/Malnutrition Assess - Dietary Evaluation Nutrition/Malnutrition Findings: Nutrition Notes Start: 11/15/19 12:38 Freq: Status: Active Protocol: Document 11/15/19 12:38 [email or web address] (Rec: 11/15/19 13:23 [email or web address]) Co-Sign 11/15/19 12:38 LM Nutrition Notes Need for Assessment generated from: hr generalist,MST Initial or Follow up Assessment Current Diagnosis Hypertension,Hyperlipidemia Other Pertinent Diagnosis Abdominal pain, SIRS, tachycardia Current Diet Clear liquid diet Labs/Tests 11/13 Glucose 190 Na 135 BUN 21 Pertinent Medications Reviewed Height 5 ft 3 in Weight 43 kg [place] Body Weight (kg) 52.27 BMI 16.7 Weight Status Underweight Subjective/Other Information Pt screened for MST score. Spoke with RN, pt is not tolerating low sodium diet and will be changed to a clear liquid diet. Pt ate 10 spoonfuls for applesauce to take medicine. Pt has had nausea. Pt has clavicle and orbital wasting. Burn Absent Trauma Absent GI Symptoms Nausea Current % PO Negligible Minimum of two criteria Yes Body Fat Depletion Mild depletion (non-severe) Muscle Mass Mild Depletion (non-severe) #2 Nutrition Diagnosis Malnutrition Etiology abdominal pain and advanced age As Evidenced by Signs and Symptoms Clavicle and orbital wasting. #1 Nutrition Diagnosis Inadequate oral intake Etiology abdominal pain As Evidenced by Signs and Symptoms Pt not tolerating and diet change to clear liquids Is patient on ventilator? No Is Patient Ambulatory and/or Out of Bed No REE-([facility]-confined to bed) 1002.888 Kcal/Kg value to use for calculation 32 Approximate Energy Requirements Using 1376 kcal/Kg Calculation Used for Recommendations Kcal/kg Additional Notes Protein Needs (1.2g/kg) 52-65g /kg Fluid Needs: 1ml/kcal Nutrition Intervention Change Diet Order: Advance diet when feasible Add Supplement/Snack (indicate name/kcal Ensure Clear BID /protein ) Provides kCal: 480 Provides Protein (gm) 16 Goal #1 Diet advancement when feasible Goal #2 Wt gain/maintenance Anticipated Discharge Needs: unable to determine at this time. Follow-Up By: 11/17/19 Additional Comments F/U for intake, tolerance and diet advancement
[2019-11-16] MEDS: PANTOPRAZOLE 40 MG INJ IV SCH (11:03)
--- NOTE | 2019-11-16 12:46 | Anesthesia Day of Surgery ---
Anesthesia Day of Surgery - Day of Surgery Patient Examined: Yes Patient H&P Reviewed: Yes Patient is NPO: Yes
--- NOTE | 2019-11-16 12:47 | Anesthesia Consultation ---
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
[2019-11-16] MEDS ORDERED: propofoL 200 MG/20 ML VIAL IV ONE (13:16)
[2019-11-16] MEDS ORDERED: SODIUM CHLORIDE 0.9% 1000 ML 1,000 ML ONE (13:23)
--- NOTE | 2019-11-16 14:38 | Post Operative Note ---
Pre-op diagnosis: epigastric pain Post-op diagnosis: same Findings: EGD: small hiatal hernia - mild gastritis (bx's) - negative other Procedure: EGD Anesthesia: MAC Surgeon: SANIA LOCKE Estimated blood loss: none Pathology: list Specimen disposition: to lab Condition: stable Disposition: floor
--- NOTE | 2019-11-16 14:39 | Post Anesthesia Evaluation ---
- Post Anesthesia Evaluation Patient Participated: Yes Airway Patent: Yes Stable Respiratory Function: Yes Nausea/Vomiting: No Temp > 96.8F: Yes Pain Manageable: Yes Adequeate Hydration: Yes Anesthesia Complications: No Block Receding Appropriately: Not Applicable Patient on Ventilator: No
[2019-11-16] MEDS: MULTIVITAMINS,THER W-MINERALS TAB PO SCH (15:14)
--- NOTE | 2019-11-16 15:14 | Operative Report ---
PROCEDURE: EGD with cold biopsies. INDICATION: 1. Upper abdominal pain. 2. Nausea. MEDICATIONS: Propofol per RECHARGER. COMPLICATIONS: None. DESCRIPTION OF PROCEDURE: The patient brought to the procedure suite. The patient had the procedure discussed with her at length. All risks, complications, and benefits discussed after which the patient signed for the procedure performed. The patient was placed in left lateral decubitus position. Mouth block was placed in the patient's oral cavity. After adequate sedation medication as above, endoscope placed in mouth and brought to level of the second portion of duodenum. Retroflexion view performed. The patient's vital signs remained stable throughout the procedure. FINDINGS: There was irregular Z line, probable massive reflux, 37 cm from the gums. Biopsies were taken and sent to pathology. Medium sized hiatal hernia at GE junction. The esophagus otherwise appeared to be normal. Mild antral gastritis noted. Biopsies were taken and sent for pathology. The remaining stomach otherwise appeared to be normal. The duodenum appeared to be normal. Retroflexion view performed in the stomach showed no other pathology other than noted above. The patient tolerated the procedure well. No complications during the procedure. IMPRESSION: 1. Hiatal hernia. 2. Irregular Z line, biopsies performed. 3. Otherwise, normal esophagus. 4. Gastritis, biopsies performed. 5. Otherwise, normal EGD. RECOMMENDATIONS: 1. Follow up biopsy results. 2. If H. pylori positive, treat. 3. PPI daily. 4. If tolerating p.o., okay to discharge from GI standpoint. JOB# [id number] [facility]/NTS
[2019-11-16] MEDS: atenoloL 25 MG TAB PO SCH (15:15)
[2019-11-16] MEDS: CLOPIDOGREL 75 MG TAB PO SCH (15:15)
[2019-11-16] MEDS: CALCIUM CARBONATE/VITAMIN D3 500 MG-200 UNIT TAB PO SCH ×2 (15:15→21:30)
[2019-11-16] MEDS: URSODIOL 250 MG TAB PO SCH ×2 (15:15→21:30)
[2019-11-16] MEDS: COLESEVELAM 625 MG TAB PO SCH (15:16)
[2019-11-16] MEDS: hydroCHLOROthiazide 12.5 MG CAP PO SCH (15:16)
[2019-11-16] MEDS: ONDANSETRON 4 MG/2 ML INJ IV PRN ×2 (15:52→21:30)
[2019-11-16] MEDS: PRAVASTATIN 20 MG TAB PO SCH (21:30)
--- NOTE | 2019-11-17 10:24 | Event Note ---
patient was added to our list however her renal function has been stable if there are any renal concerns please reach out to us
[2019-11-17] MEDS ORDERED: WATER FOR INJ Sterile (PF) 0 ML ONE (12:14)
[2019-11-17] MEDS ORDERED: SINCALIDE 5 MCG VIAL IV ONE ×2 (12:14→12:19)
[2019-11-17] MEDS: D5W/0.9% NACL 1,000 ML IV SCH (13:56)
[2019-11-17] MEDS: hydroCHLOROthiazide 12.5 MG CAP PO SCH (13:59)
[2019-11-17] MEDS: MULTIVITAMINS,THER W-MINERALS TAB PO SCH (14:00)
[2019-11-17] MEDS: URSODIOL 250 MG TAB PO SCH ×2 (14:00→22:20)
[2019-11-17] MEDS: CALCIUM CARBONATE/VITAMIN D3 500 MG-200 UNIT TAB PO SCH ×2 (14:00→22:20)
[2019-11-17] MEDS: CLOPIDOGREL 75 MG TAB PO SCH (14:00)
[2019-11-17] MEDS: PANTOPRAZOLE 40 MG INJ IV SCH (14:00)
[2019-11-17] MEDS: COLESEVELAM 625 MG TAB PO SCH (14:00)
--- NOTE | 2019-11-17 14:09 | Nuclear Medicine Report ---
NUCLEAR MEDICINE HEPATOBILIARY SCAN INDICATION: nausea. TECHNIQUE: Radiotracer: Tc-99m mebrofenin (by IV): 5.3 mCi. Gallbladder Stimulant: None. COMPARISON: 09/24/2014 CT abdomen pelvis FINDINGS: Hepatic activity: Slightly increased activity in the right hepatic lobe.. Biliary activity: Delayed. Common bile duct activity is not confidently identified throughout this ex am out to 2 hours. Gallbladder activity: Delayed at 45 minutes. Small bowel activity: Not seen on T2 hours of imaging. Gallbladder ejection fraction was not performed because the patient terminated the examination. 2 muc h pain. IMPRESSION: There is delayed uptake of the radiotracer in the gallbladder at 45 minutes. No convincing common bi le duct and small bowel activity is identified. This could represent common bile duct obstruction. Co rrelate with the patient and consider MRCP or CT.. Signer Name: Doni Craft Jr, MD Signed: 11/17/2019 2:05 PM Workstation Name: [id number]
[2019-11-17] MEDS: atenoloL 25 MG TAB PO SCH (14:22)
[2019-11-17] MEDS: ONDANSETRON 4 MG/2 ML INJ IV PRN (14:34)
--- NOTE | 2019-11-17 18:03 | Progress Note ---
Assessment and Plan Assessment and plan: --Patient had EGD yesterday s/p EGD 11/16/2019 - small hiatal hernia - mild gastritis (bx's) - negative other Rec: - f/u bx's - PPI qd - soft diet - pt had mildly dilated pancreatic duct on ct and cbd on MRI w/o obvious mass, ca 19-9 pending (follow as outpt) - may need EUS as outpt for continued bile/pancreatic duct eval Endoscopic ultrasound as outpatient --Acute epigastric abdominal pain -CT abdomen pelvis suggesting pancreatic duct dilatation without any obvious obstruction s/p MRCP 11/15/2019 MRCP; mild dilation of the common bile duct at the level of pancreatic head no filling defects are seen within the common duct or within the pancreatic duct no mass or lesions noted Hepatobiliary scan; 11/17/2019 There is delayed uptake of radiotracer in the gallbladder at 45 minutes no convincing common bile duct and small bowel activity is identified this could represent common bile duct obstruction correlate with the patient and consider MRCP MRCP or consider MRCP . --Patient on clear liquid diet, continue IV fluid Intractable nausea and vomiting -Continue IV fluid, IV antiemetics, continue PPI History of GI bleed, monitor H&H Hypertension, continue to monitor vitals -Resume home meds Hyponatremia, likely due to dehydration, continue IV fluid Lactic acidosis, likely from dehydration -Improved with IV fluid SIRS, patient presented with leukocytosis, tachycardia, lactic acidosis -Continue empiric antibiotics for now, follow cultures h/o L5 compression fracture, continue supportive care DVT prophylaxis, heparin Closely monitor the patient and adjust management as needed Start soft diet advance as tolerated If patient tolerates diet may discharge home first thing in the morning If cleared by GI Plan of care reviewed with the patient and her nurse History Interval history: I have seen and examined the patient this morning Patient had a hepatobiliary scan Patient still has very mild epigastric pain and some nausea Alert awake oriented Cachectic severely malnourished Vital signs reviewed Hospitalist Physical - Constitutional Vitals: Temp Pulse Resp BP Pulse Ox 97.9 F 84 16 112/60 99 11/17/19 16:27 11/17/19 16:27 11/17/19 16:27 11/17/19 16:27 11/17/19 16:27 General appearance: Present: no acute distress, well-nourished - EENT Eyes: Present: PERRL, EOM intact - Neck Neck: Present: supple, normal ROM - Respiratory Respiratory effort: normal Respiratory: bilateral: diminished, negative: rales, rhonchi, wheezing - Cardiovascular Rhythm: regular Heart Sounds: Present: S1 & S2 - Extremities Extremities: no ischemia, No edema - Abdominal General gastrointestinal: soft, non-tender, non-distended, normal bowel sounds - Integumentary Integumentary: Present: clear, warm - Psychiatric Psychiatric: appropriate mood/affect, cooperative - Neurologic Neurologic: moves all extremities HEART Score - HEART Score Risk factors: 1-2 risk factors Troponin: < normal limit - Critical Actions Critical Actions: 0-3 pts:0.9-1.7%risk of adverse cardiac event.Candidate for discharge Results - Labs CBC & Chem 7: 11/14/19 19:59 11/15/19 19:18 Labs: Laboratory Last Values WBC 14.6 K/mm3 (4.5-11.0) H 11/14/19 19:59 RBC 2.80 M/mm3 (3.65-5.03) L 11/14/19 19:59 Hgb 10.0 gm/dl (10.1-14.3) L 11/14/19 19:59 Hct 28.5 % (30.3-42.9) L 11/14/19 19:59 MCV 102 fl (79-97) H 11/14/19 19:59 MCH 36 pg (28-32) H 11/14/19 19:59 MCHC 35 % (30-34) H 11/14/19 19:59 RDW 13.6 % (13.2-15.2) 11/14/19 19:59 Plt Count 259 K/mm3 (140-440) 11/14/19 19:59 Lymph % (Auto) 6.4 % (13.4-35.0) L 11/14/19 19:59 [place] % (Auto) 4.7 % (0.0-7.3) 11/14/19 19:59 Eos % (Auto) 0.1 % (0.0-4.3) 11/14/19 19:59 Baso % (Auto) 0.3 % (0.0-1.8) 11/14/19 19:59 Lymph # 0.9 K/mm3 (1.2-5.4) L 11/14/19 19:59 [place] # 0.7 K/mm3 (0.0-0.8) 11/14/19 19:59 Eos # 0.0 K/mm3 (0.0-0.4) 11/14/19 19:59 Baso # 0.0 K/mm3 (0.0-0.1) 11/14/19 19:59 Seg Neutrophils % 88.5 % (40.0-70.0) H 11/14/19 19:59 Seg Neutrophils # 12.9 K/mm3 (1.8-7.7) H 11/14/19 19:59 Sodium 132 mmol/L (137-145) L 11/15/19 19:18 Potassium 4.4 mmol/L (3.6-5.0) 11/15/19 19:18 Chloride 92.1 mmol/L (98-107) L 11/15/19 19:18 Carbon Dioxide 23 mmol/L (22-30) 11/15/19 19:18 Anion Gap 21 mmol/L 11/15/19 19:18 BUN 14 mg/dL (7-17) 11/15/19 19:18 Creatinine 0.7 mg/dL (0.6-1.2) 11/15/19 19:18 Estimated GFR > 60 ml/min 11/15/19 19:18 BUN/Creatinine Ratio 20 % 11/15/19 19:18 Glucose 119 mg/dL (65-100) H 11/15/19 19:18 Lactic Acid 1.70 mmol/L (0.7-2.0) 11/15/19 02:26 Calcium 9.6 mg/dL (8.4-10.2) 11/15/19 19:18 Total Bilirubin 0.20 mg/dL (0.1-1.2) 11/14/19 19:59 AST 20 units/L (5-40) 11/14/19 19:59 ALT 10 units/L (7-56) 11/14/19 19:59 Alkaline Phosphatase 46 units/L (35-129) 11/14/19 19:59 Total Protein 7.8 g/dL (6.3-8.2) 11/14/19 19:59 Albumin 4.3 g/dL (3.9-5) 11/14/19 19:59 Albumin/Globulin Ratio 1.2 % 11/14/19 19:59 Lipase 56 units/L (13-60) 11/14/19 19:59 Urine Color Yellow (Yellow) 11/14/19 20:59 Urine Turbidity Clear (Clear) 11/14/19 20:59 Urine pH 7.0 (5.0-7.0) 11/14/19 20:59 Ur Specific [place] 1.010 (1.003-1.030) 11/14/19 20:59 Urine Protein <15 mg/dl mg/dL (Negative) 11/14/19 20:59 Urine Glucose (UA) Neg mg/dL (Negative) 11/14/19 20:59 Urine Ketones Tr mg/dL (Negative) 11/14/19 20:59 Urine Blood Neg (Negative) 11/14/19 20:59 Urine Nitrite Neg (Negative) 11/14/19 20:59 Urine Bilirubin Neg (Negative) 11/14/19 20:59 Urine Urobilinogen < 2.0 mg/dL (<2.0) 11/14/19 20:59 Ur Leukocyte Esterase Mod (Negative) 11/14/19 20:59 Urine WBC (Auto) 6.0 /HPF (0.0-6.0) 11/14/19 20:59 Urine RBC (Auto) 2.0 /HPF (0.0-6.0) 11/14/19 20:59 Microbiology: Microbiology 11/14/19 23:08 Peripheral/Venous Blood Culture - Preliminary NO GROWTH AFTER 48 HOURS 11/14/19 22:54 Peripheral/Venous Blood Culture - Preliminary NO GROWTH AFTER 48 HOURS White/IV: Voiding Method External Female Catheter IV Catheter Type [Right Upper Mid-line arm] IV Catheter Type [Left INT / Saline Lock Antecubital] Active Medications - Current Medications Current Medications: Generic Name Dose Route Start Last Admin Trade Name Freq PRN Reason Stop Dose Admin Acetaminophen 650 mg 11/15/19 00:03 Tylenol PO Q4H PRN Fever >101 Atenolol 25 mg 11/15/19 10:00 11/17/19 14:22 Tenormin PO 25 mg DAILY CLAUDIA Administration Bisacodyl 10 mg 11/15/19 00:00 Dulcolax [place] QDAY PRN Constipation Calcium/Vitamin D 1 each 11/15/19 10:00 11/17/19 14:00 Oysco D 500 Mg-200 Unit PO 1 each BID CLAUDIA Administration Clopidogrel Bisulfate 75 mg 11/15/19 10:00 11/17/19 14:00 Plavix PO 75 mg DAILY CLAUDIA Administration Colesevelam HCl 625 mg 11/15/19 10:00 11/17/19 14:00 Welchol PO 625 mg DAILY CLAUDIA Administration Hydrochlorothiazide 12.5 mg 11/15/19 10:00 11/17/19 13:59 Hctz PO 12.5 mg DAILY CLAUDIA Administration Levofloxacin/Dextrose 750 mg in 150 mls @ 100 mls/hr 11/15/19 16:00 11/17/19 10:00 Levaquin 750mg/150ml IV 11/23/19 11:29 100 mls/hr Q48HR CLAUDIA Administration Protocol Dextrose/Sodium Chloride 1,000 mls @ 75 mls/hr 11/16/19 10:00 11/17/19 13:56 D5ns IV 75 mls/hr DIRECT CLAUDIA Administration Metoclopramide HCl 5 mg 11/15/19 12:00 Reglan PO Q6HR PRN Nausea And Vomiting Miscellaneous Medication 50 mg 11/15/19 10:00 Mirabegron [Myrbetriq] PO QDAY CLAUDIA Morphine Sulfate 2 mg 11/15/19 00:03 11/16/19 21:30 Morphine IV 2 mg Q4H PRN Administration Pain, Moderate (4-6) Multivitamins/Minerals 1 each 11/15/19 15:00 11/17/19 14:00 Theragran-M Tab PO 1 each QDAY CLAUDIA Administration Ondansetron HCl 4 mg 11/15/19 00:01 11/17/19 14:34 Zofran IV 4 mg Q8H PRN Administration Nausea And Vomiting Pantoprazole Sodium 40 mg 11/15/19 12:00 11/17/19 14:00 Protonix IV 11/17/19 23:59 40 mg QDAY CLAUDIA Administration Pantoprazole Sodium 40 mg 11/18/19 10:00 Protonix PO DAILY CLAUDIA Pravastatin Sodium 10 mg 11/15/19 22:00 11/16/19 21:30 Pravachol PO 10 mg QHS CLAUDIA Administration Ursodiol 250 mg 11/15/19 10:00 11/17/19 14:00 Ursodiol PO 250 mg BID CLAUDIA Administration Nutrition/Malnutrition Assess - Dietary Evaluation Nutrition/Malnutrition Findings: Nutrition Notes Start: 11/15/19 12:38 Freq: Status: Active Protocol: Document 11/17/19 13:33 [email or web address] (Rec: 11/17/19 13:56 [email or web address]) Co-Sign 11/17/19 13:33 LM Nutrition Notes Initial or Follow up Reassessment Current Diagnosis Hypertension,Hyperlipidemia Other Pertinent Diagnosis Abdominal pain, SIRS, tachycardia Current Diet NPO Labs/Tests Na 132 Glucose 119 Pertinent Medications Reviewed Height 5 ft 3 in Weight 46.2 kg [place] Body Weight (kg) 52.27 BMI 18.0 Weight Status Underweight Subjective/Other Information F/U for intakes, tolerance and diet advancement. Pt was asleep at time of visit. Pt was on clear liquid diet. Burn Absent Trauma Absent Current % PO Negligible Minimum of two criteria Yes Body Fat Depletion Mild depletion (non-severe) Muscle Mass Mild Depletion (non-severe) #2 Nutrition Diagnosis Malnutrition Diagnosis Progress(for reassessment Continues documentation) #1 Nutrition Diagnosis Inadequate oral intake As Evidenced by Signs and Symptoms NPO for procedure Diagnosis Progress(for reassessment Worsened documentation) Is patient on ventilator? No Is Patient Ambulatory and/or Out of Bed No REE-([facility]-confined to bed) 1041.240 Kcal/Kg value to use for calculation 32 Approximate Energy Requirements Using 1478 kcal/Kg Calculation Used for Recommendations Kcal/kg Additional Notes Protein Needs (1.2g-1.5/kg) 52 -65g/kg Fluid Needs: 1ml/kcal Nutrition Intervention Change Diet Order: Advance diet when feasible Goal #1 Diet advancement when feasible Goal #2 Wt gain/maintenance Anticipated Discharge Needs: unable to determine at this time. Follow-Up By: 11/20/19 Additional Comments F/U for intake, tolerance and diet advancement. ONS need
--- NOTE | 2019-11-17 18:49 | Gastroenterology Progress Note ---
Assessment and Plan GI: pt presents w/ epigastric pain, unclear etiology w/ benign EGD - ct w/ ?pancreatic dilation, mrcp w/ mild cbd dilation both w/o obvious mass - HIDA scan results noted, decrease filling contrast to intestine - pt w/ some signs improvement, continue clear liquid diet, advance as toelrated - Ca 19-9 pending and will consider EUS as outpt based on progress - if tolerating po in am ok to dc from GI standpoint - will follow Subjective Date of service: 11/17/19 Interval history: - pt reports still w/ epigastric pain but some improvement along with nausea. Objective - Constitutional Vitals: Temp Pulse Resp BP Pulse Ox 97.9 F 84 16 112/60 99 11/17/19 16:27 11/17/19 16:27 11/17/19 16:27 11/17/19 16:27 11/17/19 16:27 General appearance: no acute distress - EENT Eyes: PERRL - Respiratory Respiratory: bilateral: CTA - Cardiovascular Rhythm: regular Heart Sounds: Present: S1 & S2 - Gastrointestinal General gastrointestinal: Present: soft, non-tender, non-distended - Labs CBC & Chem 7: 11/14/19 19:59 11/15/19 19:18
[2019-11-17] MEDS: MULTIVITAMINS ,THERAPEUTIC TAB PO SCH (19:43)
[2019-11-17] MEDS: METOCLOPRAMIDE 10 MG TAB PO PRN (20:41)
[2019-11-17] MEDS: PRAVASTATIN 20 MG TAB PO SCH (22:20)
[2019-11-18] MEDS: D5W/0.9% NACL 1,000 ML IV SCH (02:51)
[2019-11-18] MEDS ORDERED: SODIUM CHLORIDE 0.9% 500 ML 500 ML IV ONE ×2 (04:18→13:37)
[2019-11-18] MEDS ORDERED: SODIUM CHLORIDE 0.9% 1000 ML 1,000 ML IV SCH (04:30)
[2019-11-18] MEDS: SODIUM CHLORIDE 0.9% 1000 ML 1,000 ML IV SCH ×3 (05:55→14:08)
[2019-11-18] MEDS ORDERED: ONDANSETRON 4 MG/2 ML INJ IV PRN (07:35)
--- NOTE | 2019-11-18 08:01 | Progress Note ---
Assessment and Plan Assessment and plan: --Hypotension; Hold antihypertensive medications Continue IV fluids, fluid boluses as needed Probably secondary to poor oral intake IV fluids, encourage oral nutrition Ensure Plus as tolerated If blood pressures do not improve consider transfer to ICU and start Levophed --Intractable nausea and vomiting Continue IV fluid, IV antiemetics, continue PPI --Abdominal/epigastric pain ; Advance diet to mechanical soft as tolerated Nutrition supplements Ensure 3 times a day Evaluation by GI s/p EGD 11/16/2019 - small hiatal hernia - mild gastritis (bx's) - negative other Rec: - f/u bx's - PPI qd - soft diet - pt had mildly dilated pancreatic duct on ct and cbd on MRI w/o obvious mass, ca 19-9 pending (follow as outpt) - may need EUS as outpt for continued bile/pancreatic duct eval Endoscopic ultrasound as outpatient --Pancreatic duct/common bile duct dilation; CT abdomen pelvis suggesting pancreatic duct dilatation without any obvious obstruction s/p MRCP 11/15/2019MRCP; mild dilation of the common bile duct at the level of pancreatic head no filling defects are seen within the common duct or within the pancreatic duct no mass or lesions noted Hepatobiliary scan; 11/17/2019 There is delayed uptake of radiotracer in the gallbladder at 45 minutes no convincing common bile duct and small bowel activity is identified this could represent common bile duct obstruction correlate with the patient and consider MRCP --History of GI bleed, monitor H&H --Hyponatremia, likely due to dehydration, continue IV fluid --Lactic acidosis, likely from dehydration; resolved --SIRS, patient presented with leukocytosis, tachycardia, lactic acidosis Continue empiric antibiotics for now, follow cultures h/o L5 compression fracture, continue supportive care DVT prophylaxis, heparin Closely monitor the patient and adjust management as needed Start soft diet advance as tolerated If patient tolerates diet may discharge home first thing in the morning If cleared by GI Plan of care reviewed with the patient and her nurse I spoke with patient's daughter Ms. Chen Strauss. And updated her Patient's condition, GI work-up. Test reports, verbalized understanding History Interval history: I have seen and examined the patient at bedside this morning Patient's chart and current medications tests and reports reviewed Patient complains of nausea and vomiting unable to eat and retain any food Still has intermittent epigastric pain Patient is elderly frail cachectic emaciated. Vital signs reviewed Mild hypotension, received fluid bolus Hospitalist Physical - Constitutional Vitals: Temp Pulse Resp BP Pulse Ox 97.6 F 86 20 87/43 96 11/18/19 04:33 11/18/19 05:37 11/18/19 05:37 11/18/19 05:37 11/18/19 05:37 General appearance: Present: mild distress, cachectic, disheveled - EENT Eyes: Present: PERRL, EOM intact - Neck Neck: Present: supple, normal ROM - Respiratory Respiratory effort: normal Respiratory: bilateral: diminished, negative: rales, rhonchi, wheezing - Cardiovascular Rhythm: regular Heart Sounds: Present: S1 & S2 - Extremities Extremities: no ischemia, No edema - Abdominal General gastrointestinal: soft, tender (Vague tenderness epigastrium and right upper quadrant), normal bowel sounds - Integumentary Integumentary: Present: clear, warm - Psychiatric Psychiatric: appropriate mood/affect, cooperative - Neurologic Neurologic: moves all extremities HEART Score - HEART Score Risk factors: 1-2 risk factors Troponin: < normal limit - Critical Actions Critical Actions: 0-3 pts:0.9-1.7%risk of adverse cardiac event.Candidate for discharge Results - Labs CBC & Chem 7: 11/18/19 13:26 11/18/19 11:31 Labs: Laboratory Last Values WBC 14.6 K/mm3 (4.5-11.0) H 11/14/19 19:59 RBC 2.80 M/mm3 (3.65-5.03) L 11/14/19 19:59 Hgb 10.0 gm/dl (10.1-14.3) L 11/14/19 19:59 Hct 28.5 % (30.3-42.9) L 11/14/19 19:59 MCV 102 fl (79-97) H 11/14/19 19:59 MCH 36 pg (28-32) H 11/14/19 19:59 MCHC 35 % (30-34) H 11/14/19 19:59 RDW 13.6 % (13.2-15.2) 11/14/19 19:59 Plt Count 259 K/mm3 (140-440) 11/14/19 19:59 Lymph % (Auto) 6.4 % (13.4-35.0) L 11/14/19 19:59 [place] % (Auto) 4.7 % (0.0-7.3) 11/14/19 19:59 Eos % (Auto) 0.1 % (0.0-4.3) 11/14/19 19:59 Baso % (Auto) 0.3 % (0.0-1.8) 11/14/19 19:59 Lymph # 0.9 K/mm3 (1.2-5.4) L 11/14/19 19:59 [place] # 0.7 K/mm3 (0.0-0.8) 11/14/19 19:59 Eos # 0.0 K/mm3 (0.0-0.4) 11/14/19 19:59 Baso # 0.0 K/mm3 (0.0-0.1) 11/14/19 19:59 Seg Neutrophils % 88.5 % (40.0-70.0) H 11/14/19 19:59 Seg Neutrophils # 12.9 K/mm3 (1.8-7.7) H 11/14/19 19:59 Sodium 132 mmol/L (137-145) L 11/15/19 19:18 Potassium 4.4 mmol/L (3.6-5.0) 11/15/19 19:18 Chloride 92.1 mmol/L (98-107) L 11/15/19 19:18 Carbon Dioxide 23 mmol/L (22-30) 11/15/19 19:18 Anion Gap 21 mmol/L 11/15/19 19:18 BUN 14 mg/dL (7-17) 11/15/19 19:18 Creatinine 0.7 mg/dL (0.6-1.2) 11/15/19 19:18 Estimated GFR > 60 ml/min 11/15/19 19:18 BUN/Creatinine Ratio 20 % 11/15/19 19:18 Glucose 119 mg/dL (65-100) H 11/15/19 19:18 Lactic Acid 1.70 mmol/L (0.7-2.0) 11/15/19 02:26 Calcium 9.6 mg/dL (8.4-10.2) 11/15/19 19:18 Total Bilirubin 0.20 mg/dL (0.1-1.2) 11/14/19 19:59 AST 20 units/L (5-40) 11/14/19 19:59 ALT 10 units/L (7-56) 11/14/19 19:59 Alkaline Phosphatase 46 units/L (35-129) 11/14/19 19:59 Total Protein 7.8 g/dL (6.3-8.2) 11/14/19 19:59 Albumin 4.3 g/dL (3.9-5) 11/14/19 19:59 Albumin/Globulin Ratio 1.2 % 11/14/19 19:59 Lipase 56 units/L (13-60) 11/14/19 19:59 Urine Color Yellow (Yellow) 11/14/19 20:59 Urine Turbidity Clear (Clear) 11/14/19 20:59 Urine pH 7.0 (5.0-7.0) 11/14/19 20:59 Ur Specific [place] 1.010 (1.003-1.030) 11/14/19 20:59 Urine Protein <15 mg/dl mg/dL (Negative) 11/14/19 20:59 Urine Glucose (UA) Neg mg/dL (Negative) 11/14/19 20:59 Urine Ketones Tr mg/dL (Negative) 11/14/19 20:59 Urine Blood Neg (Negative) 11/14/19 20:59 Urine Nitrite Neg (Negative) 11/14/19 20:59 Urine Bilirubin Neg (Negative) 11/14/19 20:59 Urine Urobilinogen < 2.0 mg/dL (<2.0) 11/14/19 20:59 Ur Leukocyte Esterase Mod (Negative) 11/14/19 20:59 Urine WBC (Auto) 6.0 /HPF (0.0-6.0) 11/14/19 20:59 Urine RBC (Auto) 2.0 /HPF (0.0-6.0) 11/14/19 20:59 Microbiology: Microbiology 11/14/19 23:08 Peripheral/Venous Blood Culture - Preliminary NO GROWTH AFTER 72 HOURS 11/14/19 22:54 Peripheral/Venous Blood Culture - Preliminary NO GROWTH AFTER 72 HOURS White/IV: Voiding Method External Female Catheter IV Catheter Type [Right Upper Mid-line arm] IV Catheter Type [Left INT / Saline Lock Antecubital] Active Medications - Current Medications Current Medications: Generic Name Dose Route Start Last Admin Trade Name Freq PRN Reason Stop Dose Admin Acetaminophen 650 mg 11/15/19 00:03 11/17/19 20:40 Tylenol PO 650 mg Q4H PRN Administration Fever >101 Atenolol 25 mg 11/15/19 10:00 11/17/19 14:22 Tenormin PO 25 mg DAILY CLAUDIA Administration Bisacodyl 10 mg 11/15/19 00:00 Dulcolax [place] QDAY PRN Constipation Calcium/Vitamin D 1 each 11/15/19 10:00 11/17/19 22:20 Oysco D 500 Mg-200 Unit PO 1 each BID CLAUDIA Administration Clopidogrel Bisulfate 75 mg 11/15/19 10:00 11/17/19 14:00 Plavix PO 75 mg DAILY CLAUDIA Administration Colesevelam HCl 625 mg 11/15/19 10:00 11/17/19 14:00 Welchol PO 625 mg DAILY CLAUDIA Administration Hydrochlorothiazide 12.5 mg 11/15/19 10:00 11/17/19 13:59 Hctz PO 12.5 mg DAILY CLAUDIA Administration Levofloxacin/Dextrose 750 mg in 150 mls @ 100 mls/hr 11/15/19 16:00 11/17/19 10:00 Levaquin 750mg/150ml IV 11/23/19 11:29 100 mls/hr Q48HR CLAUDIA Administration Protocol Sodium Chloride 1,000 mls @ 125 mls/hr 11/18/19 05:45 11/18/19 05:55 Nacl 0.9% 1000 Ml IV 125 mls/hr DIRECT CLAUDIA Administration Metoclopramide HCl 5 mg 11/15/19 12:00 11/17/19 20:41 Reglan PO 5 mg Q6HR PRN Administration Nausea And Vomiting Miscellaneous Medication 50 mg 11/15/19 10:00 Mirabegron [Myrbetriq] PO QDAY CLAUDIA Morphine Sulfate 2 mg 11/15/19 00:03 11/16/19 21:30 Morphine IV 2 mg Q4H PRN Administration Pain, Moderate (4-6) Multivitamins/Minerals 1 each 11/15/19 15:00 11/17/19 14:00 Theragran-M Tab PO 1 each QDAY CLAUDIA Administration Ondansetron HCl 4 mg 11/18/19 07:35 Zofran IV Q4H PRN Nausea And Vomiting Pantoprazole Sodium 40 mg 11/18/19 10:00 Protonix PO DAILY CLAUDIA Pravastatin Sodium 10 mg 11/15/19 22:00 11/17/19 22:20 Pravachol PO 10 mg QHS CLAUDIA Administration Ursodiol 250 mg 11/15/19 10:00 11/17/19 22:20 Ursodiol PO 250 mg BID CLAUDIA Administration Nutrition/Malnutrition Assess - Dietary Evaluation Nutrition/Malnutrition Findings: Nutrition Notes Start: 11/15/19 12:38 Freq: Status: Active Protocol: Document 11/17/19 13:33 [email or web address] (Rec: 11/17/19 13:56 [email or web address]) Co-Sign 11/17/19 13:33 LM Nutrition Notes Initial or Follow up Reassessment Current Diagnosis Hypertension,Hyperlipidemia Other Pertinent Diagnosis Abdominal pain, SIRS, tachycardia Current Diet NPO Labs/Tests Na 132 Glucose 119 Pertinent Medications Reviewed Height 5 ft 3 in Weight 46.2 kg [place] Body Weight (kg) 52.27 BMI 18.0 Weight Status Underweight Subjective/Other Information F/U for intakes, tolerance and diet advancement. Pt was asleep at time of visit. Pt was on clear liquid diet. Burn Absent Trauma Absent Current % PO Negligible Minimum of two criteria Yes Body Fat Depletion Mild depletion (non-severe) Muscle Mass Mild Depletion (non-severe) #2 Nutrition Diagnosis Malnutrition Diagnosis Progress(for reassessment Continues documentation) #1 Nutrition Diagnosis Inadequate oral intake As Evidenced by Signs and Symptoms NPO for procedure Diagnosis Progress(for reassessment Worsened documentation) Is patient on ventilator? No Is Patient Ambulatory and/or Out of Bed No REE-([facility]-confined to bed) 1041.240 Kcal/Kg value to use for calculation 32 Approximate Energy Requirements Using 1478 kcal/Kg Calculation Used for Recommendations Kcal/kg Additional Notes Protein Needs (1.2g-1.5/kg) 52 -65g/kg Fluid Needs: 1ml/kcal Nutrition Intervention Change Diet Order: Advance diet when feasible Goal #1 Diet advancement when feasible Goal #2 Wt gain/maintenance Anticipated Discharge Needs: unable to determine at this time. Follow-Up By: 11/20/19 Additional Comments F/U for intake, tolerance and diet advancement. ONS need
[2019-11-18] MEDS: COLESEVELAM 625 MG TAB PO SCH ×2 (10:05→11:43)
[2019-11-18] MEDS: URSODIOL 250 MG TAB PO SCH (10:05)
[2019-11-18] MEDS: PANTOPRAZOLE 40 MG TAB PO SCH ×2 (10:05→11:42)
[2019-11-18] MEDS: CALCIUM CARBONATE/VITAMIN D3 500 MG-200 UNIT TAB PO SCH ×2 (10:05)
[2019-11-18] MEDS: MULTIVITAMINS,THER W-MINERALS TAB PO SCH ×2 (10:05→11:43)
[2019-11-18] MEDS: CLOPIDOGREL 75 MG TAB PO SCH ×2 (10:05)
[2019-11-18] MEDS: atenoloL 25 MG TAB PO SCH (10:07)
[2019-11-18] MEDS: hydroCHLOROthiazide 12.5 MG CAP PO SCH (10:07)
--- NOTE | 2019-11-18 10:52 | Gastroenterology Progress Note ---
Assessment and Plan - Patient Problems (1) Intractable nausea and vomiting Current Visit: Yes Status: Acute (2) Abnormal findings on imaging of biliary tract Current Visit: Yes Status: Acute (3) SIRS (systemic inflammatory response syndrome) Current Visit: Yes Status: Acute Plan to address problem: - Unclear etiology, but imaging shows abnormal biliary system (abnormal HIDA, and dilated CBD but normal LFTs. No obvious mass). - Elevated WBC concerning and will recheck today. If elevated WBC, would recommend resume empiric abx. - At present, feel the constellation is most consistent with impending cholecyst itis. Will consult surgery. - Would need cardiac risk-strat prior to surgery given age and comorbids. - EGD showed no GOO or PUD, and patient on protonix. - If LFTs and WBC markedly elevated, may require ERCP. - Keep NPO for now, and may need PPN/TPN if clinical condition fails to improve. Subjective Date of service: 11/18/19 Principal diagnosis: N/V Interval history: The patient continues to have N/V and did not tolerate her diet. She complains of vague diffuse abdominal pain (but it's mostly RUQ on exam). She has had no bleeding or BM per nursing, and no blood in the emesis (scant/small volume). Objective - Constitutional Vitals: Temp Pulse Resp BP Pulse Ox 97.6 F 86 20 87/43 96 11/18/19 04:33 11/18/19 05:37 11/18/19 05:37 11/18/19 05:37 11/18/19 05:37 General appearance: mild distress - Respiratory Respiratory effort: normal Respiratory: bilateral: CTA - Cardiovascular Rhythm: regular Heart Sounds: Present: S1 & S2 - Gastrointestinal General gastrointestinal: Present: soft, tender (Mostly RUQ but vague diffuse pain; no guard or rebound), distended (Minimal distention) - Labs CBC & Chem 7: 11/14/19 19:59 11/15/19 19:18
[2019-11-18] MEDS ORDERED: SODIUM CHLORIDE 0.9% 500 ML 500 ML ONE (10:55)
[2019-11-18] MEDS ORDERED: SODIUM CHLORIDE 0.9% 500 ML 500 ML IV SCH (11:00)
[2019-11-18] MEDS ORDERED: EPINEPHrine 1 MG/10 ML SYRINGE ONE (11:13)
[2019-11-18] MEDS ORDERED: SODIUM BICARB 8.4% 50 MEQ/50 ML SYRINGE IV ONE ×2 (11:13→14:00)
[2019-11-18] MEDS ORDERED: NORepinephrine/NS 4 MG-250 ML 4 MG/250 ML BAG IV ONE (11:23)
[2019-11-18] MEDS: NORepinephrine/NS 4 MG-250 ML 4 MG/250 ML BAG IV SCH ×2 (11:39→14:30)
--- NOTE | 2019-11-18 11:53 | Event Note ---
Date: 11/18/19 Responded to the code met patient was unresponsive with agonal breathing and severely hypotensive. Patient received fluid bolus with minimal improvement, patient was unresponsive, severely diaphoretic Intermittent agonal breathing, bradycardia, cardiac arrest, CODE BLUE was called CPR initiated per ACLS protocol, received epinephrine and bicarb with spontaneous return of pulse Patient is intubated placed on ventilatory support, started on Levophed. Patient is 89 years of age frail, emaciated malnourished, very poor prognosis Discussed with patient's daughter Ms. Jackson and her who came to the ICU Patient's condition, cardiac arrest, CPR, multiple comorbidities, poor prognosis Inquired about advanced directives and CODE STATUS, they want everything to be done Full code at this point.
[2019-11-18 11:57] LABS: Hematocrit 21.8 % (30.3-42.9); Hemoglobin 7.1 gm/dl (10.1-14.3); Mean Corpuscular HGB Conc 33 % (30-34); Mean Corpuscular Volume 109 fl (79-97); Platelet Count 188 K/mm3 (140-440); Red Blood Count 2.01 M/mm3 (3.65-5.03); Red Cell Distribution Width 14.2 % (13.2-15.2)
--- NOTE | 2019-11-18 12:01 | XRay Report ---
CHEST 1 VIEW 11:36 AM INDICATION / CLINICAL INFORMATION: Endotracheal tube placement. COMPARISON: Earlier today at 11:06 AM. FINDINGS: SUPPORT DEVICES: There is a new endotracheal tube with the tip 4 cm above the casey. HEART / MEDIASTINUM: Unchanged. LUNGS / PLEURA: There is localized patchy parenchymal disease in the right midlung, more prominent or more focal than on the prior exam. Bibasilar subsegmental parenchymal disease may be slightly improv ed related to the better degree of inspiration. No pneumothorax. ADDITIONAL FINDINGS: No significant additional findings. IMPRESSION: 1. Endotracheal tube in good position. 2. Focal parenchymal disease in the right midlung may be related to bacterial pneumonia or aspiration pneumonia. 3. Bibasilar subsegmental atelectasis. Signer Name: Akin Cortes MD Signed: 11/18/2019 11:57 AM Workstation Name: [id number]
[2019-11-18 12:05] LABS: Albumin 2.1 g/dL (3.9-5); Calcium 7.9 mg/dL (8.4-10.2)
--- NOTE | 2019-11-18 12:06 | XRay Report ---
CHEST 1 VIEW 11:06 AM INDICATION / CLINICAL INFORMATION: Respiratory distress. Rule out aspiration. COMPARISON: 11/14/19. FINDINGS: SUPPORT DEVICES: None. HEART / MEDIASTINUM: Unchanged. LUNGS / PLEURA: Low lung volumes. Mild pleuroparenchymal opacity in the right mid to lower hemithorax is new. Mild left basilar subsegmental parenchymal disease has increased. No pneumothorax. ADDITIONAL FINDINGS: No significant additional findings. IMPRESSION: New pleuroparenchymal disease in the right mid to lower hemithorax may be related to bact erial pneumonia or aspiration pneumonia. Signer Name: Akin Cortes MD Signed: 11/18/2019 12:01 PM Workstation Name: [id number]
--- NOTE | 2019-11-18 12:24 | Event Note ---
Date: 11/18/19 General surgery was asked to see the patient by GI for consideration of cholecystectomy to address her abdominal pain. Unfortunately, the patient had a cardiac arrest this morning. She is currently in the intensive care unit, intubated and on pressors. Review of her previous labs and radiographic studies showed no evidence of any acute cholecystitis that may be contributing to the situation. Unfortunately, unable to do full assessment at this time to consider gallbladder as a source of pain. Therefore, we will hold off on doing a full consult at this time. Please reconsult in the future if needed. D/W Dr. Bermudez
[2019-11-18] MEDS ORDERED: VASOPRESSIN 20 UNIT in SODIUM CHLORIDE 0.9% 100 ML IV SCH (13:00)
[2019-11-18] MEDS ORDERED: PHENYLEPHRINE 100 MG in SODIUM CHLORIDE 0.9% 90 ML IV SCH (13:00)
[2019-11-18 13:53] LABS: Hematocrit 21.1 % (30.3-42.9); Hemoglobin 7.1 gm/dl (10.1-14.3)
[2019-11-18] MEDS ORDERED: EPINEPHrine 1 MG/1 ML 16 MG in SODIUM CHLORIDE 0.9% 250ML 234 ML IV SCH (14:00)
[2019-11-18] MEDS ORDERED: SODIUM BICARBONATE 150 MEQ in DEXTROSE 5% IN WATER 1,000 ML IV SCH (14:00)
[2019-11-18 15:26] VITALS: BP 103/65
[2019-11-18 15:27] LABS: Band Neutrophils # (Manual) 0.9 K/mm3; Basophils % (Manual) 0 % (0.0-1.8); Eosinophils % (Manual) 0 % (0.0-4.3); Total Cells Counted 100
[2019-11-18 15:28] LABS: Burr Cells Few
[2019-11-18 15:29] LABS: Giant Platelets Few; Platelet Estimate Consistent w Auto
--- NOTE | 2019-11-18 15:34 | Death Summary ---
Summary - Providers Date of service: 11/18/19 Consults: 11/15/19 10:48 Consult to Physician [CONS] Routine Comment: Consulting Provider: RUSSELL ALCANTAR Physician Instructions: Reason For Exam: dilatation pancreatic duct 11/15/19 11:02 Midline [Consult to PICC Line RN] [CONS] Routine Reason For Exam: hard stick. Patient needing medications. Type Line:: Midline 11/18/19 10:48 Consult to Physician [CONS] Routine Comment: Consulting Provider: YOBANI PRINCE Physician Instructions: Reason For Exam: N/V 11/18/19 13:00 Consult to PICC Line RN [CONS] Urgent Reason For Exam: need central IV access. Type Line:: PICC Attending: JAHAIRA MERRILL - summary Date of admission: 11/15/19 12:07 Date of : 11/18/19 (at 15:01) Significant findings: --Hypotension; Hold antihypertensive medications Continue IV fluids, fluid boluses as needed Probably secondary to poor oral intake IV fluids, encourage oral nutrition Ensure Plus as tolerated If blood pressures do not improve consider transfer to ICU and start Levophed --Intractable nausea and vomiting Continue IV fluid, IV antiemetics, continue PPI --Abdominal/epigastric pain ; Advance diet to mechanical soft as tolerated Nutrition supplements Ensure 3 times a day Evaluation by GI s/p EGD 11/16/2019 - small hiatal hernia - mild gastritis (bx's) - negative other Rec: - f/u bx's - PPI qd - soft diet - pt had mildly dilated pancreatic duct on ct and cbd on MRI w/o obvious mass, ca 19-9 pending (follow as outpt) - may need EUS as outpt for continued bile/pancreatic duct eval Endoscopic ultrasound as outpatient --Pancreatic duct/common bile duct dilation; CT abdomen pelvis suggesting pancreatic duct dilatation without any obvious obstruction s/p MRCP 11/15/2019MRCP; mild dilation of the common bile duct at the level of pancreatic head no filling defects are seen within the common duct or within the pancreatic duct no mass or lesions noted Hepatobiliary scan; 11/17/2019 There is delayed uptake of radiotracer in the gallbladder at 45 minutes no convincing common bile duct and small bowel activity is identified this could represent common bile duct obstruction correlate with the patient and consider MRCP --Severe protein calorie malnutrition; Nutrition supplements nutrition consult supportive care --History of GI bleed, monitor H&H --Hyponatremia, likely due to dehydration, continue IV fluid --Lactic acidosis, likely from dehydration; resolved --SIRS, patient presented with leukocytosis, tachycardia, lactic acidosis Continue empiric antibiotics for now, follow cultures h/o L5 compression fracture, continue supportive care DVT prophylaxis, heparin - Final diagnosis (1) Acute respiratory failure with hypoxia Note: Final diagnosis: (2) PEA (Pulseless electrical activity) Note: Final diagnosis: (3) Cardiogenic shock Note: Final diagnosis: (4) Liver disease Note: Final diagnosis: (5) Abnormal findings on imaging of biliary tract Note: Final diagnosis: (6) Anemia Note: Final diagnosis:
[2019-11-18] MEDS ORDERED: PANTOPRAZOLE 40 MG INJ IV SCH (22:00)
== END 2019-11-18 17:15 | disposition home or self-care (01) | DRG 391 ==
LOC: ED 19:29 → 4A 22:45 → OBSVTOIN 11-15 12:07 → CC1 11-18 11:12
PROVIDERS: ADMIT Internal Medicine; ATTEND Internal Medicine
PROC: 06HY33Z Insertion of Infusion Device into Lower Vein, Percutaneous Approach (ICD-10-PCS; principal; 2019-11-15)
PROC: 0DJ08ZZ Inspection of Upper Intestinal Tract, Via Natural or Artificial Opening Endoscopic (ICD-10-PCS; 2019-11-16)
PROC: 5A1935Z Respiratory Ventilation, Less than 24 Consecutive Hours (ICD-10-PCS; 2019-11-18)
PROC: 0BH17EZ Insertion of Endotracheal Airway into Trachea, Via Natural or Artificial Opening (ICD-10-PCS; 2019-11-18)
PROC: 5A12012 Performance of Cardiac Output, Single, Manual (ICD-10-PCS; 2019-11-18)
DX: K29.60 Other gastritis without bleeding (principal); E43 Unspecified severe protein-calorie malnutrition; R57.0 Cardiogenic shock; J96.01 Acute respiratory failure with hypoxia; E87.1 Hypo-osmolality and hyponatremia; R65.10 Systemic inflammatory response syndrome (SIRS) of non-infectious origin without acute organ dysfunction; Z68.1 Body mass index [BMI] 19.9 or less, adult; E87.2 Acidosis; K44.9 Diaphragmatic hernia without obstruction or gangrene; R10.0 Acute abdomen; I95.9 Hypotension, unspecified; I10 Essential (primary) hypertension; D64.9 Anemia, unspecified; K21.9 Gastro-esophageal reflux disease without esophagitis; E78.00 Pure hypercholesterolemia, unspecified; E78.5 Hyperlipidemia, unspecified; R00.0 Tachycardia, unspecified; E86.0 Dehydration; Z90.49 Acquired absence of other specified parts of digestive tract; Z90.711 Acquired absence of uterus with remaining cervical stump
CPT/HCPCS: 31500; 36415; 71045; 74177; 74181; 78226; 80048; 80053; 81001; 82140; 82805; 82962; 83690; 85007; 85014; 85018; 85025; 86301; 86850; 86900; 86901; 86920; 87040; 87070; 87076; 87186; 87205; 88305; 88342; 92950; 93005; 94002; 94003; 96374; 96375; G0378; A9270-GY; A9537; C9113; J0171; J1170; J1956; J2270; J2370; J2405; J2704; J2805; J7030; J7040; J7042; Q0162; Q9967